=== PATIENT | male | born 1960 ===

== ENCOUNTER 2016-08-16 19:49 | Emergency (ER) | payer MEDICAID, OTHER ==
[2016-08-16 20:11] VITALS: BP 140/104
[2016-08-16] MEDS ORDERED: HYDROmorphone 1 MG/ML Syringe IM ONE (22:00)
--- NOTE | 2016-08-16 23:13 | EDM.PDOC ---
ED HPI Trauma - General Chief Complaint: Upper Extremity Injury/Pain Stated Complaint: POSS BROKEN LEFT ARM Time Seen by Provider: 08/16/16 22:50 Source: Reports: Patient History Limitations: Reports: No limitations - History of Present Illness INITIAL COMMENTS - FREE TEXT/NARRATIVE: Patient presents for evaluation and treatment of a laceration to the left brow and a likely broken left arm. Patient prior to arrival in the ER he was on some stairs. He states that his dog pulled on the leash causing him to fall down 3 stairs. He reports a deformity to the left arm. He also reports a laceration to the left lateral brow. He states he is unable to move the arm due to pain. He states that he had some numbness and tingling to the left arm, reports that this is improving. Patient is unsure if he passed out after the fall. He states that he was feeling dizzy and nauseated but did not vomit. He states that he did have some blurry vision earlier but this has now since resolved. Patient is not on any blood thinners. Past medical history of multiple myeloma. Patient is very agitated, which is concerning for head trauma. Patient has also been waiting for several hours before being seen which is likely the cause of his agitation. Occurred When: just prior to arrival Method of Injury: fall Pain/Injury Location: Reports: head, upper extremity, left Consciousness: Reports: unsure Associated Symptoms: Reports: dizziness, nausea/vomiting, vision changes. Denies: neck pain Allergies/ADRs: Allergies ibuprofen Allergy (Verified 02/04/16 17:21) Anaphylactic Shock mushroom Allergy (Verified 08/16/16 20:11) Anaphylactic Shock Penicillins Allergy (Verified 02/04/16 17:19) Anaphylactic Shock Home Medications: Ambulatory Orders Carisoprodol [Soma] 500 mg PO TID PRN 02/04/16 [Confirmed 08/16/16] Hydrocodone/Acetaminophen [[place] 5-325] 1 tab PO Q8HR PRN #10 tablet 02/04/16 [ Confirmed 08/16/16] Past Medical History Musculoskeletal History: Reports: Back pain, chronic Neurological History: Reports: Migraines Oncologic (Cancer) History: Reports: Malignant melanoma Other Oncologic History: melanoma 10 years ago Social & Family History - Tobacco Use Smoking Status *Q: Current Every Day Smoker Years of Tobacco use: 40 Packs/Tins Daily: 1 Used Tobacco, but Quit: No Second Hand Smoke Exposure: No - Caffeine Use Caffeine Use: Reports: None - Recreational Drug Use Recreational Drug Use: No Review of Systems - Review of Systems Review Of Systems: See Below Eyes: Reports: vision change (blurry earlier, now resolved) GI/Abdominal: Reports: Nausea. Denies: Vomiting Musculoskeletal: Reports: arm pain (left distal forearm). Denies: neck pain Skin: Reports: wound (left yazdanism) Neurological: Reports: Dizziness, Headache. Denies: Syncope (unsure) Trauma Exam - Physical Exam Exam: See Below Exam Limited By: No limitations General Appearance: Reports: alert, WD/WN, no apparent distress Head: Reports: atraumatic, normocephalic Eyes: bilateral eye: PERRL Ears: Reports: normal external exam Nose: Reports: normal inspection Throat/Mouth: Reports: Normal inspection, Normal lips, Normal voice, No airway compromise Neck: Reports: non-tender, normal alignment, normal inspection Respiratory Exam: Reports: no respiratory distress, lungs clear, normal breath sounds Cardiovascular: Reports: normal peripheral pulses (2+ radial pulses bilaterally) , regular rate, rhythm, no murmur Extremities: Reports: pain with movement (unable to move left arm; deformity to the left distal forearm), tenderness (left distal forearm), other (ROM testing deferred due to obvious deformity; normal cap refill, patient is able to wiggle fingers) Neurologic: Reports: alert, other (agitated) Skin: Reports: Normal color, Warm/dry, Other (1cm laceration to the left lateral brow) - Ayr Coma Score Best Eye Response (Juvenal): (4) open spontaneously Best Verbal Response (Ayr): (5) oriented Best Motor Response (Ayr): (6) obeys commands ED TRAUMA EXTREMITY PROCEDURES - Laceration/Wound Repair Left Lateral Brow Appearance: subcutaneous (1.5) Distal NVT: neuro & vascular intact, no tendon injury Anesthetic type: local Local anesthesia - Lidocaine (Xylocaine): 1% plain Local anesthetic volume: 2cc Skin prep: saline, sterile drape, other (surclens) Closed with: sutures Suture size: other (6-0) # of sutures: 2 Suture type: nylon, interrupted, simple Sterile dressing applied: nurse Tetanus status addressed: Yes Complications: No - Splinting Left Upper Extremity Splint site: left forearm Pre-procedure NV status: normal Post-procedure NV status: normal Splint material: other (iberglass) Splint design: sugar tong, sling Applied & form fitted by: provider Provider post-splint application NV check: NV status normal, good position Complications: No Course - Vital Signs Last Recorded V/S: Last Vital Signs Temp 36.4 C 08/16/16 20:06 Pulse 85 08/16/16 20:06 Resp 18 08/16/16 20:06 BP 140/104 H 08/16/16 20:06 Pulse Ox 98 08/16/16 20:06 - Orders/Labs/Meds Meds: Medications Discontinued Medications Generic Name Dose Route Start Last Admin Trade Name Freq PRN Reason Stop Dose Admin Hydromorphone HCl 1 mg 08/16/16 22:00 08/16/16 22:08 Dilaudid IM 08/16/16 22:01 1 mg ONETIME ONE Administration Hydromorphone HCl 0.5 mg 08/17/16 00:11 08/17/16 00:24 Dilaudid IM 08/17/16 00:12 0.5 mg ONETIME ONE Administration Lidocaine HCl 20 ml 08/16/16 23:50 08/16/16 23:54 Xylocaine 1% INJECT 08/16/16 23:51 20 ml ONETIME ONE Administration Lidocaine HCl Confirm 08/16/16 23:54 Xylocaine 1% Administered 08/16/16 23:55 Dose 50 ml .ROUTE .[facility] ONE - Radiology Interpretation Free Text/Narrative:: Head without contrast impression per [facility]: no evidence of acute intracranial injury or fracture. Incidental findings. Xray of the lwft wrist and forearm shows a distal, communitated radial fracture. - Re-Assessments/Exams Free Text/Narrative Re-Assessment/Exam: 08/17/16 00:[address] Cullen, orthopedics with [facility]. He was able to view the x- rays. He recommends splint with follow up with orthopedics tomorrow. Reviewed the CT results with the patient. He was given medication for pain and his pain is substantially improved. Patient was placed in a sugar tong splints with a sling. 2 sutures placed to the left yazdanism. Patient tolerated these procedures well. Follow up with orthopedics tomorrow. Discharge instructions are as documented Departure - Departure Time of Disposition: 00:14 Disposition: Home, Self-Care 01 Condition: fair Clinical Impression: Fracture of radius Qualifiers: Encounter type: initial encounter Radius location: distal Fracture type: closed Fracture morphology: unspecified fracture morphology Laterality: left Qualified Code(s): S52.502A - Unspecified fracture of the lower end of left radius, initial encounter for closed fracture Instructions: Radial Fracture Referrals: Monster Waterman Jr, MD [Primary Care Provider] - Forms: ED Department Discharge Additional Instructions: You were given medication in the ER that can affect your ability to drive and operate machinery. No driving or operating machinery within 12 hours of taking prescription narcotic pain medication Wash the wound with gentle soap and water twice a day. antibacterial ointment to the wound twice a day for 3 days. Keep the wound covered. Monitor for signs of infection such as increased swelling, redness present to the clinic or the ER should these develop. Take your pain medication at home for pain relief. Followup with orthopedics tomorrow. Recommend Dr. Taylor or Dr. Mazariegos. Call [phone] Taylor or call [phone] Mazariegos. Please have them know you have a fracture of the left distal radius that is comminuted. On-call orthopedics recommended you be seen tomorrow. Wear the splint at all times. Use the sling. Keep the splints covered will showering or bathing. Please return to the ER for any problems, questions or concerns.
[2016-08-16] MEDS ORDERED: Lidocaine 1% 20 ML MDV INJECT ONE (23:50)
[2016-08-16] MEDS ORDERED: Lidocaine 1% 50 ML MDV ONE (23:54)
[2016-08-17] MEDS ORDERED: HYDROmorphone 0.5 MG/0.5 ML Syringe IM ONE (00:11)
--- NOTE | 2016-08-17 10:31 | CR ---
Left wrist: Four views of the left wrist were obtained. Comparison: Correlated with recent forearm study, no previous left wrist exam. Comminuted distal radial fracture is seen with significant posterior impaction and posterior tilt of the distal radial articular margin. Distal ulna appears intact. Other carpal bones appear within normal limits. Diffuse soft tissue swelling is identified. Impression: 1. Comminuted, impacted radial fracture with dorsal tilt of the distal radial articular margin. 2. Soft tissue swelling. Diagnostic code #3
--- NOTE | 2016-08-17 10:31 | CR ---
Left forearm: Two views of the left forearm were obtained. Comparison: No previous study. Distal radial fracture is seen with displacement and articular extension. Other portions of the forearm study are unremarkable. Soft tissue swelling is present. Impression: 1. Distal radial fracture. 2. Soft tissue swelling. 3. Other portions of the left forearm exam appear within normal limits. Diagnostic code #3
--- NOTE | 2016-08-17 10:31 | CT ---
Head CT Technique: Multiple axial sections through the brain were obtained. Intravenous contrast was not utilized. Comparison: No previous intracranial imaging. Findings: Ventricles along with basal cisterns and sulci over the convexities are mildly prominent for the patient's age. No abnormal parenchymal densities are seen. No evidence of intracranial hemorrhage. No midline shift or mass effect is seen. Cisterna magna seen which is normal variant and incidental. Bone window settings were reviewed which show no discrete calvarial abnormality. Visualized paranasal sinuses and mastoid sinuses as well as middle ear cavities appear clear. No acute calvarial abnormality is appreciated. Impression: 1. Mild generalized atrophy. 2. No acute intracranial abnormality is appreciated. Diagnostic code #2 Agree with preliminary report issued by [facility] (preliminary [facility] report dictated on 08/17/16, 12:43 AM Central Time)
== END 2016-08-17 00:27 | disposition home or self-care (01) ==
LOC: JD.ED 19:49
PROC: 0HQ1XZZ Repair Face Skin, External Approach (ICD-10-PCS; principal; 2016-08-16)
PROC: 2W3DX1Z Immobilization of Left Lower Arm using Splint (ICD-10-PCS; 2016-08-16)
DX: S01.112A Laceration without foreign body of left eyelid and periocular area, initial encounter (principal); S52.502A Unspecified fracture of the lower end of left radius, initial encounter for closed fracture; X58.XXXA Exposure to other specified factors, initial encounter; Z79.899 Other long term (current) drug therapy
CPT/HCPCS: 12011; 29105; 70450; 73090; 73110; 96372; 99284; J1170; 29125

== ENCOUNTER 2016-08-27 11:51 | Day surgery (SDC) | payer MEDICAID, OTHER ==
[~2016-08-27 11:51] MED LIST: Lactated Ringers 1,000 ML IV SCH; Lidocaine 1%/Sod Bicarbonate in NS 8.4% 1 ML Syringe IV PRN; Sodium Chloride 0.9% 10 ML Syringe FLUSH PRN
[2016-08-27] MEDS ORDERED: Clindamycin Phosphate 900 MG in Sodium Chloride 0.9% 100 ML IV ONE (12:50)
[2016-08-27] MEDS ORDERED: Bupivacaine 0.25% 30 ML SDV ONE (13:41)
--- NOTE | 2016-08-27 14:00 | PCM.PREANE ---
Preanesthetic Assessment - Anesthesia/Transfusion/Family Hx Anesthesia History: Prior Anesthesia Without Reaction Family History of Anesthesia Reaction: No Transfusion History: No Prior Transfusion(s) Intubation History: Unknown Additional History: no di - Review of Systems General: No Symptoms Pulmonary: No Symptoms Cardiovascular: No Symptoms Gastrointestinal: No symptoms Neurological: No Symptoms Other: Reports: None - Physical Assessment NPO Status Date: 08/26/16 NPO Status Time: 20:00 O2 Sat by Pulse Oximetry: 96 Respiratory Rate: 20 Vital Signs: Last Vital Signs Temp 36.5 C 08/27/16 12:00 Pulse 101 H 08/27/16 12:00 Resp 20 08/27/16 12:00 BP 150/91 H 08/27/16 12:00 Pulse Ox 96 08/27/16 12:00 Height: 1.8 m Weight: 66.678 kg ASA Class: 2 Mental Status: Alert & Oriented x3 Airway Class: Mallampati = 1 Dentition: Reports: Missing Tooth/Teeth (extremely poor dentition, teeth only on bottom, 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 use ) Thyro-Mental Finger Breadths: 3 Mouth Opening Finger Breadths: 5 ROM/Head Extension: Full Lungs: Clear to auscultation, Normal respiratory effort Cardiovascular: Regular Rate, Regular Rhythm - Lab Values: Laboratory Last Values WBC 9.62 K/mm3 (4.23-9.07) H 08/25/16 10:21 RBC 3.94 M/mm3 (4.63-6.08) L 08/25/16 10:21 Hgb 12.6 gm/L (13.7-17.5) L 08/25/16 10:21 Hct 38.3 % (40.1-51.0) L 08/25/16 10:21 MCV 97.2 fl (79.0-92.2) H 08/25/16 10:21 MCH 32.0 pg (25.7-32.2) 08/25/16 10:21 MCHC 32.9 g/dl (32.2-35.5) 08/25/16 10:21 RDW Std Deviation 46.2 fL (35.1-43.9) H 08/25/16 10:21 Plt Count 319 K/mm3 (163-337) 08/25/16 10:21 MPV 8.2 fl (9.4-12.3) L 08/25/16 10:21 Neut % (Auto) 64.7 % (34.0-67.9) 08/25/16 10:21 Lymph % (Auto) 24.8 % (21.8-53.1) 08/25/16 10:21 [place] % (Auto) 7.1 % (5.3-12.2) 08/25/16 10:21 Eos % (Auto) 2.8 (0.8-7.0) 08/25/16 10:21 Baso % (Auto) 0.4 % (0.1-1.2) 08/25/16 10:21 Neut # (Auto) 6.22 K/mm3 (1.78-5.38) H 08/25/16 10:21 Lymph # (Auto) 2.39 K/mm3 (1.32-3.57) 08/25/16 10:21 [place] # (Auto) 0.68 K/mm3 (0.30-0.82) 08/25/16 10:21 Eos # (Auto) 0.27 K/mm3 (0.04-0.54) 08/25/16 10:21 Baso # (Auto) 0.04 K/mm3 (0.01-0.08) 08/25/16 10:21 Sodium 141 mEq/L (136-145) 08/25/16 10:21 Potassium 3.6 mEq/L (3.5-5.1) 08/25/16 10:21 Chloride 102 mEq/L (98-107) 08/25/16 10:21 Carbon Dioxide 33 mEq/L (21-32) H 08/25/16 10:21 Anion Gap 9.6 (5-15) 08/25/16 10:21 BUN 8 mg/dL (7-18) 08/25/16 10:21 Creatinine 0.9 mg/dL (0.7-1.3) 08/25/16 10:21 Est Cr Clr Drug Dosing 100.48 mL/min 08/25/16 10:21 Estimated GFR (MDRD) > 60 mL/min (>60) 08/25/16 10:21 BUN/Creatinine Ratio 8.9 (14-18) L 08/25/16 10:21 Glucose 82 mg/dL (74-106) 08/25/16 10:21 Calcium 8.9 mg/dL (8.5-10.1) 08/25/16 10:21 MRSA (PCR) Positive H 08/25/16 10:21 - Allergies Allergies/Adverse Reactions: Allergies Allergy/AdvReac Type Severity Reaction Status Date / Time ibuprofen Allergy Anaphylactic Verified 08/27/16 12:41 Shock mushroom Allergy Anaphylactic Verified 08/27/16 12:41 Shock Penicillins Allergy Anaphylactic Verified 08/27/16 12:41 Shock - Blood Blood Available: No - Acknowledgements Anesthesia Type Planned: General Anesthesia Pt an Appropriate Candidate for the Planned Anesthesia: Yes Alternatives and Risks of Anesthesia Discussed w Pt/Guardian: Yes Pt/Guardian Understands and Agrees with Anesthesia Plan: Yes PreAnesthesia Questionnaire Cardiovascular History: Reports: None Respiratory History: Reports: None Gastrointestinal History: Reports: None Genitourinary History: Reports: None COUNTERINTELLIGENCE/HUMINT SPECIALIST History: Reports: None Musculoskeletal History: Reports: Back pain, chronic Neurological History: Reports: Migraines Psychiatric History: Reports: None Endocrine/Metabolic History: Reports: None Hematologic History: Reports: None Immunologic History: Reports: None Oncologic (Cancer) History: Reports: Malignant melanoma Other Oncologic History: melanoma 10 years ago Dermatologic History: Reports: None - Past Surgical History Head Surgeries/Procedures: Reports: None HEENT Surgical History: Reports: Tonsillectomy Musculoskeletal Surgical History: Reports: Other (see below) Other Musculoskeletal Surgeries/Procedures:: Right knee arthroscopy - SUBSTANCE USE Smoking Status *Q: Current Every Day Smoker Tobacco Use Within Last Twelve Months: Cigarettes Second Hand Smoke Exposure: No Recreational Drug Use History: No - HOME MEDS Home Medications: Home Meds Carisoprodol [Soma] 500 mg PO TID PRN 02/04/16 [History] Acetaminophen/oxyCODONE [Percocet 325-5 MG] 1 - 2 tab PO Q6H 08/27/16 [History] Hydrocodone/Acetaminophen [[place] 10-325 Tablet] 1 tab PO ASDIRECTED PRN [History] - CURRENT (IN HOUSE) MEDS Current Meds: Current Medications Lactated Ringer's (Ringers, Lactated) 1,000 mls @ 125 mls/hr IV ASDIRECTED GRISELDA Stop: 08/27/16 23:00 Last Admin: 08/27/16 12:15 Dose: 125 mls/hr Vancomycin HCl 1 gm/ Sodium (Chloride) 250 mls @ 250 mls/hr IV ONETIME ONE Stop: 08/27/16 13:59 Lidocaine/Sodium Bicarbonate (Buffered Lidocaine 1% In Ns 8.4%) 0.25 ml IV ONETIME PRN PRN Reason: Prior to IV Start Stop: 08/27/16 18:00 Last Admin: 08/27/16 12:14 Dose: 0.25 ml Sodium Chloride (Saline Flush) 10 ml FLUSH ASDIRECTED PRN PRN Reason: Keep Vein Open Stop: 08/27/16 18:00 Discontinued Medications Bupivacaine HCl (Marcaine 0.25%) Confirm Administered Dose 30 ml .ROUTE .STK- MED ONE Stop: 08/27/16 13:42 Clindamycin Phosphate 900 mg/ (Sodium Chloride) 106 mls @ 100 mls/hr IV ONETIME ONE Stop: 08/27/16 13:53 Preanesthetic Assessment - PHYSICAL ASSESSMENT O2 Sat by Pulse Oximetry: 96 RR: 20 Vital Signs: Last Vital Signs Temp 36.5 C 08/27/16 12:00 Pulse 101 H 08/27/16 12:00 Resp 20 08/27/16 12:00 BP 150/91 H 08/27/16 12:00 Pulse Ox 96 08/27/16 12:00 Height: 1.8 m Weight: 66.678 kg NPO Status Date: 08/26/16 NPO Status Time: 20:00 - LAB Values: Laboratory Last Values WBC 9.62 K/mm3 (4.23-9.07) H 08/25/16 10:21 RBC 3.94 M/mm3 (4.63-6.08) L 08/25/16 10:21 Hgb 12.6 gm/L (13.7-17.5) L 08/25/16 10:21 Hct 38.3 % (40.1-51.0) L 08/25/16 10:21 MCV 97.2 fl (79.0-92.2) H 08/25/16 10:21 MCH 32.0 pg (25.7-32.2) 08/25/16 10:21 MCHC 32.9 g/dl (32.2-35.5) 08/25/16 10:21 RDW Std Deviation 46.2 fL (35.1-43.9) H 08/25/16 10:21 Plt Count 319 K/mm3 (163-337) 08/25/16 10:21 MPV 8.2 fl (9.4-12.3) L 08/25/16 10:21 Neut % (Auto) 64.7 % (34.0-67.9) 08/25/16 10:21 Lymph % (Auto) 24.8 % (21.8-53.1) 08/25/16 10:21 [place] % (Auto) 7.1 % (5.3-12.2) 08/25/16 10:21 Eos % (Auto) 2.8 (0.8-7.0) 08/25/16 10:21 Baso % (Auto) 0.4 % (0.1-1.2) 08/25/16 10:21 Neut # (Auto) 6.22 K/mm3 (1.78-5.38) H 08/25/16 10:21 Lymph # (Auto) 2.39 K/mm3 (1.32-3.57) 08/25/16 10:21 [place] # (Auto) 0.68 K/mm3 (0.30-0.82) 08/25/16 10:21 Eos # (Auto) 0.27 K/mm3 (0.04-0.54) 08/25/16 10:21 Baso # (Auto) 0.04 K/mm3 (0.01-0.08) 08/25/16 10:21 Sodium 141 mEq/L (136-145) 08/25/16 10:21 Potassium 3.6 mEq/L (3.5-5.1) 08/25/16 10:21 Chloride 102 mEq/L (98-107) 08/25/16 10:21 Carbon Dioxide 33 mEq/L (21-32) H 08/25/16 10:21 Anion Gap 9.6 (5-15) 08/25/16 10:21 BUN 8 mg/dL (7-18) 08/25/16 10:21 Creatinine 0.9 mg/dL (0.7-1.3) 08/25/16 10:21 Est Cr Clr Drug Dosing 100.48 mL/min 08/25/16 10:21 Estimated GFR (MDRD) > 60 mL/min (>60) 08/25/16 10:21 BUN/Creatinine Ratio 8.9 (14-18) L 08/25/16 10:21 Glucose 82 mg/dL (74-106) 08/25/16 10:21 Calcium 8.9 mg/dL (8.5-10.1) 08/25/16 10:21 MRSA (PCR) Positive H 08/25/16 10:21 - ALLERGIES Allergies/Adverse Reactions: Allergies Allergy/AdvReac Type Severity Reaction Status Date / Time ibuprofen Allergy Anaphylactic Verified 08/27/16 12:41 Shock mushroom Allergy Anaphylactic Verified 08/27/16 12:41 Shock Penicillins Allergy Anaphylactic Verified 08/27/16 12:41 Shock
[2016-08-27] MEDS ORDERED: diphenhydrAMINE 50 MG/ML SDV IVPUSH PRN (14:27)
[2016-08-27] MEDS ORDERED: Ondansetron 4 MG/2 ML SDV IVPUSH PRN (14:27)
[2016-08-27] MEDS ORDERED: Midazolam 1 MG/ML 2 ML SDV ONE (14:31)
[2016-08-27] MEDS ORDERED: Propofol 200 MG/20 ML SDV ONE (14:31)
[2016-08-27] MEDS ORDERED: fentaNYL 100 MCG/2 ML SDV ONE (14:31)
[2016-08-27] MEDS ORDERED: Lidocaine 1% 4 ML ONE (14:32)
[2016-08-27] MEDS ORDERED: Meperidine PF 50 MG/ML Syringe IVPUSH PRN (15:30)
[2016-08-27] MEDS ORDERED: HYDROmorphone 1 MG/ML Syringe ONE (16:04)
--- NOTE | 2016-08-27 17:02 | PCM.POSTAN ---
POST ANESTHESIA ASSESSMENT - MENTAL STATUS Mental Status: somnolent - VITAL SIGNS Pulse Rate: 104 SaO2: 96 Resp Rate: 16 Blood Pressure: 144/94 Temperature: 36.6 C - RESPIRATORY Respiratory Status: respiratory rate WNL, airway patent, O2 saturation stable, supplemental oxygen - CARDIOVASCULAR CV Status: pulse rate WNL, blood pressure stable - GASTROINTESTINAL GI Status: no symptoms - PAIN Pain Score: 0 - POST OP HYDRATION Hydration Status: adequate & stable - OBSERVATIONS Free Text/Narrative:: no anesthesia complications noted
[2016-08-27] MEDS: fentaNYL 100 MCG/2 ML SDV IVPUSH PRN ×3 (17:10→17:30)
[2016-08-27] MEDS: HYDROmorphone 0.5 MG/0.5 ML Syringe IVPUSH PRN ×2 (17:18→17:35)
[2016-08-27] MEDS ORDERED: Acetaminophen/oxyCODONE 325-5 MG Tab PO ONE (18:06)
[2016-08-27 19:16] VITALS: BP 141/92
--- NOTE | 2016-08-28 08:48 | CR ---
Left wrist: Nine fluoroscopic spot views were obtained utilizing C-arm device of the left wrist. Comparison: Previous left wrist study of 08/16/16. Distal radial fracture is seen. Fracture shows better alignment than on previous exam. Study shows placement of plate and screws affixing the fracture. Fluoroscopy time given as 42.7 seconds. Impression: 1. Reduction of previous fracture with fixation by plate and screws. Diagnostic code #2
--- NOTE | 2016-08-30 21:43 | PCM.OPNOTE ---
- General Post-Op/Procedure Note Date of Surgery/Procedure: 08/27/16 Operative Procedure(s): open reduction internal fixation of left intraarticular distal radius fracture Pre Op Diagnosis: intra-articular left distal radius fracture Post-Op Diagnosis: Same Anesthesia Technique: General LMA, Local Primary Surgeon: Nate Taylor Anesthesia Provider: Ailyn Hernández Member Service Representative: Nelida Alejandre in mLs: 10 Complications: None Condition: Good
--- NOTE | 2016-08-30 22:46 | OR ---
DATE OF OPERATION: 08/27/2016 SURGEON: Nate Taylor MD OPERATIVE PROCEDURE: Open reduction, internal fixation of left intra-articular distal radius fracture. PREOPERATIVE DIAGNOSIS: Intra-articular left distal radius fracture. POSTOPERATIVE DIAGNOSIS: Intra-articular left distal radius fracture. ANESTHESIA TECHNIQUE: General LMA with local. ANESTHESIA PROVIDER: KENNEL MANAGER: Nelida Alejandre PA-C ESTIMATED BLOOD LOSS: 10 mL. COMPLICATIONS: None. CONDITION: Stable. DESCRIPTION OF PROCEDURE: The patient was identified in the preop holding area. Proper site was marked and identified by the surgeon. The patient was taken back to the operating theater, where after adequate anesthesia, the patient's left upper extremity was sterilely prepped and draped in the usual sterile fashion. OR time-out was performed. The patient received 2 g IV Ancef. Nonsterile tourniquet was applied before all this. At this time, the left upper extremity was exsanguinated. Tourniquet was insufflated to 250 mmHg. Standard volar approach of [place] was done to the distal radius. The FCR tendon sheath was then incised. The FCR tendon was then retracted to the ulnar side to protect the median nerve. The floor of the tendon sheath was then opened. The FPL was then also retracted to the median nerve side. The pronator quadratus was then elevated off the distal radius as well as the brachioradialis attachments. The previous old fracture site was identified and a reduction was done. There was noted to be at least 3 to 4 intra-articular pieces of the distal radius. I was able to reduce it by closed means and with a [place] elevator. At this time, provisional K-wire fixation was placed. A [place] 2.7 mm volar distal radial locking plate was then placed under fluoroscopic view and the proper spot. K-wires were then placed, all the plate into place and the fragments, starting on the ulnar side, 2.7mm locking screws were applied to the most distal row and found to be in adequate position with adequate fixation and samaritan of the radial height. At this time, a 2x7 nonlocking screw was placed in the shaft. Next, one more locking screw was placed on the second row of locking screws as well as another one into the radial styloid. Two more 2x7 nonlocking screws were placed in the shaft. It was found to have adequate reduction in both AP, lateral, and 30- degree lateral views. At this time, adequate saline was then irrigated through the wound. The patient's DRUJ showed no signs instability. 2-0 Vicryl was used for closure of the FCR tendon sheath. 3-0 Vicryl was used subcutaneously and a running Monocryl was used for closure of the skin. The patient was placed in a splint and will follow up in clinic in 10 days' time. OPERATION PERFORMED: ANESTHESIA: MMODAL /[id number] MTDD
== END 2016-08-27 18:35 | disposition home or self-care (01) ==
LOC: JD.SDS 11:51
PROVIDERS: ATTEND Orthopaedic Surgery
PROC: 0PSJ04Z Reposition Left Radius with Internal Fixation Device, Open Approach (ICD-10-PCS; principal; 2016-08-27)
DX: S52.572A Other intraarticular fracture of lower end of left radius, initial encounter for closed fracture (principal); X58.XXXA Exposure to other specified factors, initial encounter; F17.200 Nicotine dependence, unspecified, uncomplicated; Z88.0 Allergy status to penicillin; Z91.018 Allergy to other foods
CPT/HCPCS: 25609; 36415; 76000; 80048; 85025; 87641; A9270; C1713; C1776; J1170; J2250; J3010; J7120; 01830; J2704; J3490